=== PATIENT | male | born 1965 | race Hispanic/Latino ===

== ENCOUNTER → 2018-09-15 | Outpatient (CLI) | payer MEDICAID | END | disposition home or self-care (01) | LOC: RAH 11:46 | PROVIDERS: ATTEND Family Medicine | DX: M47.896 Other spondylosis, lumbar region (principal) | CPT/HCPCS: 72100 ==

== ENCOUNTER 2019-07-03 07:48 | Day surgery (SDC) | payer MEDICARE ==
[~2019-07-03] VITALS: Ht 167.6 cm; Wt 97.5 kg
[~2019-07-03 07:48] MED LIST: AEC81 PO; CARV12.511 PO; CLOP75TA32 PO; ERGO2000 PO; LEVE500T19 PO; LISI-613 PO; METF-527 PO; PRAV20TA4 PO; SODIUM CHLORIDE 0.9% 1000ML 1,000 ML IV ONE; UBID50TA3 PO; [UNRECOGNIZED DRUG - CODE] PO
[2019-07-03 08:49] VITALS: BP 126/75
[2019-07-03] MEDS ORDERED: LEVE100S7 PO (09:00)
[2019-07-03 09:52] VITALS: BP 113/54
[2019-07-03 09:57] VITALS: BP 115/55
[2019-07-03 10:02] VITALS: BP 116/55
[2019-07-03 10:07] VITALS: BP 120/55
[2019-07-03 10:12] VITALS: BP 118/55
--- NOTE | 2019-07-03 10:25 | NUR ---
dc pt [place] via [place], no distressnoted , accompanied by his father, pt denied any pain or discomforts. dc intructios reinforced again, to continue home meds, to f/u with danisha mccarthy. both pt/ father verbalized understanding.
== END 2019-07-03 10:25 | disposition home or self-care (01) ==
LOC: DAH 07:48 → ENDO 07:48
PROVIDERS: ATTEND Internal Medicine
DX: K59.00 Constipation, unspecified (principal); K57.30 Diverticulosis of large intestine without perforation or abscess without bleeding; K64.8 Other hemorrhoids; I10 Essential (primary) hypertension; E11.9 Type 2 diabetes mellitus without complications; E78.5 Hyperlipidemia, unspecified; G40.909 Epilepsy, unspecified, not intractable, without status epilepticus; Z86.73 Personal history of transient ischemic attack (TIA), and cerebral infarction without residual deficits; Z79.01 Long term (current) use of anticoagulants
CPT/HCPCS: 45378; 82948 ×2; A4215; A4221; A4222; A4223; A4606; A4615; A4663; J7030

== ENCOUNTER → 2021-04-21 | Outpatient (CLI) | payer MEDICARE ==
[~2021-04-21] MED LIST changes: +LEVE100S7 PO; -LEVE500T19 PO; -LISI-613 PO; +LISI20TA24 PO; -SODIUM CHLORIDE 0.9% 1000ML 1,000 ML IV ONE
== END | disposition home or self-care (01) ==
LOC: RAH 13:15
PROVIDERS: ATTEND Family Medicine
DX: I70.293 Other atherosclerosis of native arteries of extremities, bilateral legs (principal)
CPT/HCPCS: 93925